=== PATIENT | female | born 1965 | race African-American/Black ===

== ENCOUNTER 2019-06-11 10:33 | Day surgery (SDC) | payer BC ==
[~2019-06-11] VITALS: Ht 167.6 cm; Wt 118.8 kg
[~2019-06-11 10:33] MED LIST: AMOXICILLIN500 MG PO; LORTAB 10-325 M1 TAB PO; PROAIR HFA IN; PROAIR HFA108 MCG/AC; ZESTRIL10 M1 PO
[2019-06-11 10:50] VITALS: BP 128/65
== END 2019-06-11 11:01 | disposition home or self-care (01) | DRG 392 ==
LOC: ENDO 10:33
PROVIDERS: ATTEND Surgery
PROC: 0DB48ZX Excision of Esophagogastric Junction, Via Natural or Artificial Opening Endoscopic, Diagnostic (ICD-10-PCS; principal; 2019-06-11)
PROC: 0DJD8ZZ Inspection of Lower Intestinal Tract, Via Natural or Artificial Opening Endoscopic (ICD-10-PCS; 2019-06-11)
DX: K21.9 Gastro-esophageal reflux disease without esophagitis (principal); K44.9 Diaphragmatic hernia without obstruction or gangrene; Z12.11 Encounter for screening for malignant neoplasm of colon; K57.30 Diverticulosis of large intestine without perforation or abscess without bleeding